=== PATIENT | female | born 1965 | race Caucasian/White ===

== ENCOUNTER → 2020-02-11 | Outpatient (CLI) | payer OTHER | LOC: CAT 12:04 | PROVIDERS: ATTEND Internal Medicine Cardiovascular Disease | DX: Z13.6 Encounter for screening for cardiovascular disorders (principal); I25.10 Atherosclerotic heart disease of native coronary artery without angina pectoris; E78.00 Pure hypercholesterolemia, unspecified ==

== ENCOUNTER → 2020-02-25 | Outpatient (CLI) | payer OTHER | LOC: SJCVCIMAG 10:35 | PROVIDERS: ATTEND Internal Medicine Cardiovascular Disease | DX: I08.3 Combined rheumatic disorders of mitral, aortic and tricuspid valves (principal); I48.0 Paroxysmal atrial fibrillation; Z82.49 Family history of ischemic heart disease and other diseases of the circulatory system ==

== ENCOUNTER → 2020-03-14 | Outpatient (CLI) | payer OTHER | LOC: LAB 10:37 | PROVIDERS: ATTEND Internal Medicine Cardiovascular Disease | DX: Z01.812 Encounter for preprocedural laboratory examination (principal); Z20.828 Contact with and (suspected) exposure to other viral communicable diseases ==

== ENCOUNTER → 2020-03-14 | Outpatient (CLI) | payer OTHER ==
[2020-03-14 10:31] LABS: ABSOLUTE NEUTROPHILS 2.5 thou/uL (1.4-8.2); BASOPHILS 1.1 % (0.0-2.0); EOSINOPHILS 2.8 % (0.0-3.0); HEMATOCRIT 40.9 % (37.0-47.0); HEMOGLOBIN 13.5 gm/dL (12.0-15.0); LYMPHOCYTES 34.4 % (24.0-44.0); MCH 27.9 pg (26.0-34.0); MCV 84.6 fL (80.0-100.0); PLATELET COUNT 259 thou/uL (150-400); POLYS 50.7 % (36.0-66.0); RBC 4.83 mil/uL (4.20-5.00); RDW 13.3 % (10.5-14.5); WBC 4.9 thou/uL (4.0-11.0)
[2020-03-14 10:40] LABS: ALBUMIN 4.3 g/dL (3.4-5.0); CALCIUM 9.7 mg/dL (8.5-10.1); CREATININE 0.6 mg/dL (0.6-1.0); POTASSIUM 4.2 mmol/L (3.5-5.1); TOTAL BILIRUBIN 0.6 mg/dL (0.2-1.0)
== END ==
LOC: CAT 09:02
PROVIDERS: ATTEND Internal Medicine Cardiovascular Disease
DX: I48.91 Unspecified atrial fibrillation (principal)

== ENCOUNTER 2020-03-18 09:25 | Outpatient (CLI) | payer OTHER ==
[2020-03-18] VITALS (8 sets, daily range): BP systolic 98–126; BP diastolic 52–68
[~2020-03-18] VITALS: Ht 172.7 cm; Wt 102.1 kg
[2020-03-18 10:39] LABS: HEMATOCRIT 41.5 % (37.0-47.0); HEMOGLOBIN 13.9 gm/dL (12.0-15.0); MCHC 33.5 g/dL (28.0-37.0); MCV 83.8 fL (80.0-100.0); PLATELET COUNT 276 thou/uL (150-400); RBC 4.95 mil/uL (4.20-5.00); RDW 13.2 % (10.5-14.5); WBC 5.2 thou/uL (4.0-11.0)
[2020-03-18] MEDS ORDERED: NP THYROID60 MG PO (10:44)
[2020-03-18] MEDS ORDERED: CYTOMEL 5MCG TA5 MCG PO (10:51)
[2020-03-18] MEDS ORDERED: CYTOMEL50 MCG PO ×2 (10:51→10:54)
[2020-03-18] MEDS ORDERED: ELIQUIS5 MG PO ×2 (10:52→10:56)
[2020-03-18] MEDS ORDERED: NP THYROID60 MG TOP (10:55)
[2020-03-18] MEDS ORDERED: METOPROLOL SUCC50 MG PO (10:56)
[2020-03-18 11:00] LABS: CALCIUM 9.8 mg/dL (8.5-10.1); CREATININE 0.8 mg/dL (0.6-1.0)
[2020-03-18 11:01] LABS: APTT 26.8 Seconds (24.5-32.8); PROTIME 10.4 Seconds (9.3-11.4)
[2020-03-18 11:03] LABS: POTASSIUM 4.2 mmol/L (3.5-5.1)
[2020-03-18 11:06] LABS: ALBUMIN 4.3 g/dL (3.4-5.0); TOTAL BILIRUBIN 0.9 mg/dL (0.2-1.0); TOTAL PROTEIN 7.9 g/dL (6.4-8.2)
[2020-03-18 13:13] LABS: ABSOLUTE NEUTROPHILS 2.7 thou/uL (1.4-8.2)
[2020-03-18] MEDS ORDERED: BIOIDENTICAL HORMONE (16:13)
--- NOTE | 2020-03-18 17:33 | NUR ---
PT. ARRIVED AT FLOOR AROUND 1515; PT. AOX4; VS WNL; SR ON THE MONITOR; EDUCATED ABOUT BED REST AND MANTAINING LEG STRAIGH; [facility]; C/O PAIN OVER R. GROIN INCISION; PRN PAIN MEDICATION GIVEN; RE-ASSESSMENT PT. RESTING WITH EYES CLOSED; THROUGH THE AFTERNOON NO HEMATOMA NOTICED OVER R. GROIN SIDE; EDUCATED ABOUT CALLING IF FEELS PAIN OR NOTICED SOME SWELLING; [facility]; PER DR. MARIE D/C LOCKED AFTER THREE HOURS; BED REST UNTIL 2029; [facility]; MONITORING; ADMISSION PERFORMED; ASSESSMENT CHARGED; FOLLOWING POC; WILL PASS ON REPORT;
[2020-03-19 04:15] VITALS: BP 119/59
--- NOTE | 2020-03-19 06:31 | NUR ---
pt r groin remains soft and dressing cdi, c/o gomez tylenol given this am, vss, up voiding in br after fam removed, hopes to go home this am, will con't to monitor per ppoc.
[2020-03-19 08:02] VITALS: BP 113/56
[2020-03-19 10:14] VITALS: BP 113/56
--- NOTE | 2020-03-19 10:28 | NUR ---
ASSESSMENT CHARTED. PT ALERT AND ORIENTED. VSS. DENIED HAVING PAIN OR DISCOMFORT. RIGHT GROIN INCISION C/D/I. NO HEMATOMA NOTED. ORDERS GIVEN TO DISCHARGE PT TO HOME. DISCHARGE INSTRUCTIONS GIVEN TO PT. PT VERBERLISED UNDERSTANDING. PT LEFT THE FACILITY ACCOMPANIED BY THE .
--- NOTE | 2020-03-21 13:57 | P ---
[facility] [place] [address] PROCEDURE REPORT Name: MONIQUE HOLLAND Room #: DEP [facility] Josephine#: [id number] Admission: 03/18/20 Attend Phys: Ravi Collins MD Discharge: 03/19/20 Date of : 69 Report #: [id number] THIS REPORT FOR: cc: Geoff Marie MD, Douglas MD Couchonnal,Ravi Stone MD ~ CC: Geoff Collins DATE OF SERVICE: 03/18/2020 PREOPERATIVE DIAGNOSIS: Atrial fibrillation. POSTOPERATIVE DIAGNOSIS: Atrial fibrillation. PROCEDURES PERFORMED: 1. Atrial fibrillation ablation, CPT code 19949. 2. 3D mapping, CPT code 51684. 3. Intracardiac echo, CPT code 38419. HISTORY: The patient is a 55-year-old with history of recurrent paroxysmal atrial fibrillation, here for ablation. ANESTHESIA: The patient underwent general anesthesia with no anesthesia related complications. DESCRIPTION OF PROCEDURE: The patient underwent informed consent. We discussed the details of the procedure including the risks, which include but not limited to bleeding, infection, vascular damage, stroke, SC as well as cardiac perforation. She understood these risks and is willing to proceed. The patient was brought to EP laboratory in fasting and sedated state, prepped and draped in a sterile fashion. I obtained access to the right femoral vein x 3, placing an 8, 9 and 7-Chilean short sheath using the modified Seldinger technique. Next, under fluoroscopy, decapolar catheter was placed easily in the coronary sinus and ICE catheter was placed in the right atrium. Using intracardiac ultrasound, I created a 3D geometry of the left atrium. The patient had evidence of two left and two right pulmonary veins. Her cardiac CT scan showed that the right inferior pulmonary vein had 3 branches, which likely contributed to the isolation of this vein being difficult. Next, the patient was systemically heparinized and transseptal was performed with the SL1 sheath and Rolette needle, which was straightforward and then I exchanged for the cryo sheath and placed the Lasso catheter in the left atrium and created a detailed 3D voltage map of the left atrium. Next, we started by isolating the pulmonary veins. I first started by trying to isolate the left inferior pulmonary vein. I performed 2, 4-minute freezes and had very good pressure waveform, but we did [facility] [address] [place] [address] PROCEDURE REPORT Name: ISAACRANDAMONIQUE Room #: DEP [facility] Josephine#: [id number] Admission: 03/18/20 Attend Phys: Ravi Collins MD Discharge: 03/19/20 Date of : 69 Report #: [id number] not get isolation. I performed a third freeze that was lower and again this was of 3 minutes duration, it did not result in isolation. I therefore turned my attention to the left superior pulmonary vein. This vein underwent a 4-minute freeze followed by 3-minute freeze. The first freeze resulted in isolation in 41 seconds. I then went to the right superior pulmonary vein. I performed a 4-minute freeze, which did not result in isolation and I then performed a second freeze of 270 seconds duration, which resulted in isolation at 150 seconds. I then went to the right inferior pulmonary vein and performed multiple freezes in this vessel. I performed 3 freezes with no isolation, but on the fourth freeze, we had isolation in 59 seconds. I performed another 4-minute freeze much lower and this resulted in isolation within 31 seconds, but then I performed a repeat voltage map of the entire left atrium and we had reconnection of the right inferior pulmonary vein and the left inferior pulmonary vein. Therefore, at this point, I turned my attention to the left inferior pulmonary vein. I performed a 4-minute and a 3-minute freeze in this vessel and this time these freezes were much lower almost below the left inferior pulmonary vein. The initial freeze resulted in isolation within 40 seconds. I then went back to the right inferior pulmonary vein and performed a 4-minute freeze, which resulted in isolation, but it then reconnected during __. I performed another 140 second freeze, which did not result in isolation, although it had a good pressure waveform and I at this point, was using contrast to do injections. I therefore performed a very low freeze almost a nonselective freeze of the right inferior pulmonary vein. This freeze was of 270 seconds duration and resulted in isolation 29 seconds. As such, all veins were now isolated. There were no other arrhythmias during the procedure and the procedure was concluded. The patient was in sinus rhythm throughout the procedure. Using intracardiac ultrasound, I verified there was no pericardial effusion. The patient then received systemic protamine and catheters and sheaths were pulled and a [id number] suture was performed in the right groin. There were no procedure related complications. CONCLUSIONS: Successful AFib ablation with isolation of the pulmonary veins. <ELECTRONICALLY SIGNED> By: Ravi Collins MD 03/21/20 [id number] Ravi Collins MD /nt
== END 2020-03-19 10:29 | disposition home or self-care (01) ==
LOC: CATH 09:25 → 2N 15:22 → CATH 03-19 10:29
PROVIDERS: ATTEND Internal Medicine Cardiovascular Disease
DX: I48.91 Unspecified atrial fibrillation (principal); E05.00 Thyrotoxicosis with diffuse goiter without thyrotoxic crisis or storm; Z98.890 Other specified postprocedural states; Z88.0 Allergy status to penicillin; Z88.2 Allergy status to sulfonamides; Z79.899 Other long term (current) drug therapy; Z79.01 Long term (current) use of anticoagulants
CPT/HCPCS: 10797; 62110; 62900; 65020; 65040; 70005

== ENCOUNTER → 2020-05-05 | Outpatient (CLI) | payer OTHER ==
[~2020-05-05] MED LIST: BIOIDENTICAL HORMONE; CYTOMEL 5MCG TA5 MCG PO; CYTOMEL50 MCG PO; ELIQUIS5 MG PO; METOPROLOL SUCC50 MG PO; NP THYROID60 MG PO; NP THYROID60 MG TOP
== END ==
LOC: SJCVCIMAG 12:59
PROVIDERS: ATTEND Internal Medicine Cardiovascular Disease
DX: I08.1 Rheumatic disorders of both mitral and tricuspid valves (principal)